=== PATIENT | male | born 1950 | race Caucasian/White ===

== ENCOUNTER → 2016-08-10 | Day surgery (SDC) | payer OTHER ==
[2016-07-25 10:05] VITALS: Ht 194.3 cm; Wt 96.8 kg
[~2016-08-10] VITALS: Ht 194.3 cm; Wt 96.8 kg
[~2016-08-10] MED LIST: ALBU18002 INH; ALBU1AER9 INH; HYDR-5688 PO; IOPAMIDOL INJ 61% 15 ML VIAL ONE; LIDOCAINE HCL 1% MPF 5 ML VIAL ONE; MELO15TA10 PO; MONT1TAB3 PO; SODIUM CHLORIDE 0.9% INJ 10 ML VIAL ONE
--- NOTE | 2016-08-10 13:30 | History & Physical Bridge - [place] ---
H&P Re-Evaluation Bridge Note: I have examined the patient, reviewed the History & Physical and in the interval since the performance of the History & Physical I have noted the following changes of clinical significance: No changes noted
[2016-08-10 13:51] VITALS: TEMP 36.5
--- NOTE | 2016-08-10 13:56 | Discharge Instructions ---
Discharge Instructions Date of Service Aug 10, 2016. Visit Reason for Visit: Low Back Pain Discharge Discharge Diagnosis / Problem: right leg pain Discharge Goals Goal(s): Decrease discomfort, Improve function Medications Stopped Medications Name(s): TRAMAINE STOPPED MONDAY Activity Recommendations Activity Limitations: resume your previous activity Anesthesia . Post Anesthesia Instructions: If you have had General Anesthesia or IV Sedation: * Do not drive today. * Resume driving when surgeon permits. * Do not make important decisions or sign legal documents today. * Call surgeon for: 1. Temperature elevations greater than 101 degrees F. 2. Uncontrollable pain. 3. Excessive bleeding. 4. Persistent nausea and vomiting. 5. Medication intolerance (nausea, vomiting or rash). * For nausea and vomiting use only clear liquids such as: tea, soda, bouillon until nausea subsides, then gradually increase diet as tolerated. * If you have any concerns or questions, call your surgeon's office. If physician is unavailable and it is an emergency, call 911 or go to the nearest emergency room. . Diet Recommendations Recommended Home Diet: resume previous diet Procedures Procedures Performed: Lumbar Epidural Steroid Injection Pending Studies Studies pending at discharge: no Medical Emergencies . Who to Call and When: Medical Emergencies: If at any time you feel your situation is an emergency, please call 911 immediately. . Non-Emergent Contact Non-Emergency issues call your: Specialist . . "Provider Documentation" section prepared by Joo Rutledge. .
[2016-08-10 14:00] VITALS: BP 156/94; PULSE 81; O2SAT 98
--- NOTE | 2016-08-10 14:19 | OPERATIVE REPORT ---
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 POSTOPERATIVE DIAGNOSIS: Same. PROCEDURE: Right paramedian L5-S1 intralaminar epidural steroid injection under fluoroscopic guidance. INDICATIONS: The patient is a 66-year-old white male, who has struggled with radicular complaints down the right leg for a long time. He notes that the pain is actually getting worse. It has not responded to conservative measures and is accompanied by some weakness. He presents today for an epidural injection to try to provide him with some relief. PHYSICAL EXAMINATION: Pleasant male seated comfortably. He has mild limitations with forward flexion. No problems with extension. He has 5-/5 dorsiflexion strength on the right and less antigravity strength with plantarflexion on the right. He had an increased sensation in the S1 dermatomal distribution of the right lower extremity. CONSENT: Verbal and written consent was obtained from the patient. Risks and benefits were reviewed. Risks include, but are not limited to epidural hematoma, epidural abscess, allergic reaction, and dural puncture. The patient wishes to proceed. DESCRIPTION OF PROCEDURE: The patient was taken back to the special procedures room of the [facility], where he was maintained in a prone position. Backside was cleansed with Betadine x3 and a dry sterile dressing was applied. Fluoroscope was used to identify the L5-S1 intralaminar space. Overlying skin on the right side was anesthetized with 4 mL of lidocaine 1% with a 25-gauge 1-1/2 inch needle. A 22-gauge 3-1/2 inch Tuohy needle was then directed down towards the intralaminar space. It was advanced under lateral fluoroscopic guidance and loss of resistance was noted at a depth of 7 cm. Isovue-300 contrast 1 mL was injected, in which demonstrated epidural uptake pattern with nice spread into the S1 neural foramen. He then underwent injection after negative aspiration of 40 mg of Depo-Medrol and 4 mL of preservative free sodium chloride. Injection was well tolerated. DISPOSITION: 1. The patient was taken out into the discharge recovery area, where he will be discharged home once discharge criteria have been met. 2. Follow up in the [facility] office in 2-4 weeks. I attest to the content of the Intraoperative Record and any orders documented therein. Any exceptions are noted below. ELZAD
== END | disposition home or self-care (01) ==
LOC: X.SURG 12:41
PROVIDERS: ATTEND Physical Medicine & Rehabilitation
DX: M48.07 Spinal stenosis, lumbosacral region (principal)

== ENCOUNTER → 2016-12-08 | Day surgery (SDC) | payer OTHER ==
[2016-11-17 11:25] VITALS: Ht 194.3 cm; Wt 95.5 kg
[~2016-12-08] VITALS: Ht 194.3 cm; Wt 95.5 kg
[~2016-12-08] MED LIST changes: -ALBU1AER9 INH
[2016-12-08 13:02] VITALS: BP 135/88; PULSE 69; TEMP 36.6; O2SAT 98
--- NOTE | 2016-12-08 13:12 | Discharge Instructions ---
Discharge Instructions Date of Service Dec 08, 2016. Visit Reason for Visit: Sacral Radiculopathy Discharge Discharge Diagnosis / Problem: right leg pain Discharge Goals Goal(s): Decrease discomfort, Improve function Medications Stopped Medications Name(s): Has not taken Mobic in at least three days. Activity Recommendations Activity Limitations: resume your previous activity Anesthesia . Post Anesthesia Instructions: If you have had General Anesthesia or IV Sedation: * Do not drive today. * Resume driving when surgeon permits. * Do not make important decisions or sign legal documents today. * Call surgeon for: 1. Temperature elevations greater than 101 degrees F. 2. Uncontrollable pain. 3. Excessive bleeding. 4. Persistent nausea and vomiting. 5. Medication intolerance (nausea, vomiting or rash). * For nausea and vomiting use only clear liquids such as: tea, soda, bouillon until nausea subsides, then gradually increase diet as tolerated. * If you have any concerns or questions, call your surgeon's office. If physician is unavailable and it is an emergency, call 911 or go to the nearest emergency room. . Diet Recommendations Recommended Home Diet: resume previous diet Procedures Procedures Performed: LUMBAR EPIDURAL STEROID INJECTION Pending Studies Studies pending at discharge: no Medical Emergencies . Who to Call and When: Medical Emergencies: If at any time you feel your situation is an emergency, please call 911 immediately. . Non-Emergent Contact Non-Emergency issues call your: Specialist . . "Provider Documentation" section prepared by Joo Rutledge. .
--- NOTE | 2016-12-08 13:20 | OPERATIVE REPORT ---
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 POSTOPERATIVE DIAGNOSES: Same. PROCEDURE: Right paramedian L5-S1 intralaminar epidural steroid injection under fluoroscopic guidance. INDICATIONS: The patient is a 66-year-old white male who had an epidural steroid injection on August 11 with about 90% relief for the first month or so. However, the pain started to return slowly and has been problematic to him and is getting worse. Recent EMG study showed chronic L5-S1 radiculopathy down the right lower extremity. PHYSICAL EXAMINATION: Pleasant male seated comfortably in no apparent distress. He had no sciatic notch sensitivity. He has some soreness into the hamstring that radiated down the leg with forward flexion. No focal weakness. CONSENT: Verbal and written consent was obtained from the patient. Risks and benefits were reviewed. Risks include but are not limited to epidural abscess, epidural hematoma, allergic reaction, dural puncture. The patient wishes to proceed. PROCEDURE: The patient was taken back to the special procedures room of [facility]. He was maintained in a prone position. Backside was cleansed with Betadine x3 and a dry sterile dressing was applied. Fluoroscope was used to identify the L5-S1 intralaminar space and overlying skin was anesthetized with 4 mL of lidocaine 1% with a 25 gauge 1.5-inch needle. A 22-gauge 3-1/2 inch Tuohy needle was then directed down towards the intralaminar space. It was advanced under lateral fluoroscopic guidance and loss of resistance was noted at a depth of just under 7 cm. Isovue-300 contrast 1 mL was injected in which demonstrated epidural uptake pattern. He then underwent injection after negative aspiration of 40 mg of Depo-Medrol and 4 mL of preservative free sodium chloride. Injection was well tolerated. DISPOSITION: 1. The patient is taken out into the discharge recovery area where he will be discharged home once discharge criteria have been met. 2. Follow up in the [facility] office in 2-4 weeks. I attest to the content of the Intraoperative Record and any orders documented therein. Any exception s are noted below.
== END | disposition home or self-care (01) ==
LOC: X.SURG 12:15
PROVIDERS: ATTEND Physical Medicine & Rehabilitation
DX: M51.17 Intervertebral disc disorders with radiculopathy, lumbosacral region (principal)

== ENCOUNTER → 2017-06-01 | Day surgery (SDC) | payer OTHER ==
[2017-05-16 15:08] VITALS: Ht 194.3 cm; Wt 95.5 kg
[~2017-06-01] VITALS: Ht 194.3 cm; Wt 95.5 kg
[~2017-06-01] MED LIST changes: -MONT1TAB3 PO
--- NOTE | 2017-06-01 14:09 | [facility] Post Operative Brief Note ---
Immediate Operative Summary Operative Date Jun 01, 2017. Pre-Operative Diagnosis L5-S1 disc disease with left greater than right lower extremity radiculopathy Post-Operative Diagnosis Same Procedure(s) Performed Lumbar Epidural Steroid Injection Surgeon Dr. Candy Rutledge Research Engineer Marine Equipment Surgeon(s) None Estimated Blood Loss 0 Findings Consistent with Post-Op Diagnosis Specimens NA Drains None Anesthesia Type Local Complication(s) none Disposition Disposition:
--- NOTE | 2017-06-01 14:10 | Discharge Instructions ---
Discharge Instructions Date of Service Jun 01, 2017. Visit Reason for Visit: Radiculopathy, Sacral And Sacrococcygeal Region Discharge Discharge Diagnosis / Problem: leg pain Discharge Goals Goal(s): Decrease discomfort, Improve function Medications Stopped Medications Name(s): Mobic stopped 1 week ago. Activity Recommendations Activity Limitations: resume your previous activity Anesthesia . Post Anesthesia Instructions: If you have had General Anesthesia or IV Sedation: * Do not drive today. * Resume driving when surgeon permits. * Do not make important decisions or sign legal documents today. * Call surgeon for: 1. Temperature elevations greater than 101 degrees F. 2. Uncontrollable pain. 3. Excessive bleeding. 4. Persistent nausea and vomiting. 5. Medication intolerance (nausea, vomiting or rash). * For nausea and vomiting use only clear liquids such as: tea, soda, bouillon until nausea subsides, then gradually increase diet as tolerated. * If you have any concerns or questions, call your surgeon's office. If physician is unavailable and it is an emergency, call 911 or go to the nearest emergency room. . Diet Recommendations Recommended Home Diet: resume previous diet Procedures Procedures Performed: Lumbar Epidural Steroid Injection Pending Studies Studies pending at discharge: no Medical Emergencies . Who to Call and When: Medical Emergencies: If at any time you feel your situation is an emergency, please call 911 immediately. . Non-Emergent Contact Non-Emergency issues call your: Specialist . . "Provider Documentation" section prepared by Joo Rutledge. .
[2017-06-01 14:11] VITALS: TEMP 36.9
[2017-06-01 14:32] VITALS: BP 141/89; PULSE 71; O2SAT 98
--- NOTE | 2017-06-01 15:22 | OPERATIVE REPORT ---
DATE OF OPERATION: 06/01/2017 PREOPERATIVE DIAGNOSES: L5-S1 disc disease with left greater than right lower extremity radiculopathy. POSTOPERATIVE DIAGNOSES: L5-S1 disc disease with left greater than right lower extremity radiculopathy. PROCEDURE: Left paramedian L5-S1 intralaminar epidural steroid injection under fluoroscopic guidance. INDICATIONS: Patient is a 67-year-old white male who had an epidural in November with great results; however, the pain started to return and become more problematic to him. He returns today for an injection to provide him with relief. PHYSICAL EXAMINATION: GENERAL: Pleasant male seated comfortably. MUSCULOSKELETAL: He has tenderness to palpation of left SI joint. He has reproduction of pain with forward flexion, no problems with extension. Sensation is subjectively increased at the S1 dermatome down the left lower extremity and positive straight leg raise of his left lower extremity. CONSENT: Verbal and written consent was obtained from the patient. Risks and benefits were reviewed. Risks include but are not limited to epidural abscess, epidural hematoma, allergic reaction, dural puncture and patient wishes to proceed. DESCRIPTION OF PROCEDURE: Patient was taken back to the special procedures room of the [facility] where he was maintained in a prone position. Backside was cleansed with Betadine x3 and a dry sterile dressing was applied. Fluoroscope was used to identify the L5-S1 intralaminar space. Overlying skin on the left side was anesthetized with 4 mL of lidocaine 1% with 25 gauge 1.5-inch needle. A 22-gauge 3-1/2 inch Tuohy needle was then directed down towards the intralaminar space. It was advanced under lateral fluoroscopic guidance and loss of resistance was noted at a depth of 6 cm. Isovue-300 contrast 1 mL was injected which demonstrated epidural uptake pattern which was confirmed with a lateral view and underwent injection after negative aspiration of 40 mg of Depo-Medrol and 4 mL of preservative free sodium chloride. Injection was well tolerated. DISPOSITION: 1. Patient is taken out into the discharge recovery area where he will be discharged home once discharge criteria have been met. 2. Follow up in the [facility] office in 4 weeks' time. I attest to the content of the Intraoperative Record and any orders documented therein. Any exception s are noted below.
== END | disposition home or self-care (01) ==
LOC: X.SURG 13:07
PROVIDERS: ATTEND Physical Medicine & Rehabilitation
DX: M51.17 Intervertebral disc disorders with radiculopathy, lumbosacral region (principal); Z79.899 Other long term (current) drug therapy

== ENCOUNTER → 2017-06-07 | Outpatient (CLI) | payer OTHER ==
[~2017-06-07] MED LIST changes: -IOPAMIDOL INJ 61% 15 ML VIAL ONE; -LIDOCAINE HCL 1% MPF 5 ML VIAL ONE; -SODIUM CHLORIDE 0.9% INJ 10 ML VIAL ONE
--- NOTE | 2017-06-07 10:37 | DIAGNOSTIC IMAGING REPORT ---
(BARIUM SWALLOW) ESOPHAGUS CLINICAL HISTORY: [place] COMPARISON STUDY: None. FLUOROSCOPY TIME: 1.2 minutes.. FINDINGS: 22 fluoroscopic spot images were obtained. The patient swallowed barium without difficulty. The contours of the hypopharynx are within normal limits. The esophagus is normal in course, caliber, and motility. No hiatus hernia. No gastroesophageal reflux. The barium tablet passed without difficulty. IMPRESSION: Normal barium swallow. Electronically signed by: Giuseppe Abraham M.D. 06/07/2017 10:36 AM Dictated Date/Time: 06/07/2017 10:34 AM
== END | disposition home or self-care (01) ==
LOC: C.RAD 09:51
PROVIDERS: ATTEND Nurse Practitioner Family
DX: R14.2 Eructation (principal)